=== PATIENT | female | born 1995 | race Caucasian/White ===

== ENCOUNTER 2017-10-14 13:45 | Day surgery (SDC) | payer BC ==
[~2017-10-14] VITALS: Ht 170.2 cm; Wt 65.8 kg
--- NOTE | 2017-10-14 13:33 | Diagnostic Imaging Report ---
PROCEDURE: CT abdomen and pelvis with contrast. TECHNIQUE: Multiple contiguous axial images were obtained through the abdomen and pelvis after administration of intravenous contrast. INDICATION: Right lower quadrant pain. COMPARISON: None available. FINDINGS: Lower chest: The lung bases are clear. No pericardial or pleural effusion. Peritoneum: No free intraperitoneal air or fluid. Liver and biliary system: The liver is normal. The gallbladder is normal. No biliary duct dilation. Spleen and Pancreas: Spleen is normal. The pancreas enhances normally without mass lesion or peripancreatic inflammatory changes. Adrenals: Normal. tract: The kidneys enhance normally without suspicious mass or obstruction. Urinary bladder is distended without wall thickening. Uterus and ovaries are physiologic in appearance for patient's age. GI tract: Stomach is decompressed. No bowel obstruction. No pericolonic inflammatory changes. The appendix is dilated measuring up to 8 mm and has small amount of surrounding inflammation. No rupture or abscess formation. Vasculature and Lymph nodes: Normal caliber aorta. No abdominal or pelvic lymphadenopathy. Musculoskeletal: No concerning osseous lesion. IMPRESSION: 1. Acute appendicitis without rupture, bowel obstruction, or abscess. Dictated by: Dictated on workstation # [id number]
[~2017-10-14 13:45] MED LIST: CATHETER FLUSH 10 ML SYR IV PRN; IOHEXOL 350 MG/ML 100 ML (OMNIPAQUE 350) VIAL IV ONE; NS 100 ML (IVPB) BAG IV ONE
[2017-10-14 14:00] VITALS: BP 125/81
--- NOTE | 2017-10-14 15:06 | History & Physical-Surgical ---
History of Present Illness History of Present Illness Reason for visit/HPI CC: Right lower quadrant abdominal pain. Patient is a 22 year old female who began having rlq abdominal pain last night. Pain moderate dull ache no radiation of pain. Slight fever. No nausea or vomiting. Movement and laughing makes pain worse. Nothing really making it better. Ct scan I reviewed and consistent with acute appendicitis. Date of Admission T Date Seen by Provider: Oct 14, 2017 Time Seen by Provider: 15:05 I consulted on this patient on 10/14/17 15:00 Attending Physician Keyona Dickerson DO Admitting Physician No,Local Physician Consult Allergies and Home Medications Allergies Coded Allergies: No Allergy Information Available (Unverified , 10/14/17) Patient Home Medication List Home Medication List Reviewed: Yes Past [place]-Mkjqji-Tbzxdk Hx Patient Social History Alcohol Use: Rarely Uses Recreational Drug Use: No Smoking Status: Never a Smoker Recent Foreign Travel: No Contact w/Someone Who Travel: No Recent Infectious Disease Expo: No Recent Hopitalizations: No Seasonal Allergies Seasonal Allergies: No Surgeries History of Surgeries: Yes (wisdom teeth) Respiratory History of Respiratory Disorde: No Cardiovascular History of Cardiac Disorders: No Neurological History of Neurological Disord: No Reproductive System : No Hx Reproductive Disorders: No Genitourinary History of Genitourinary Disor: No Gastrointestinal History of Gastrointestinal Di: No Musculoskeletal History of Musculoskeletal Dis: No Endocrine History of Endocrine Disorders: No HEENT History of HEENT Disorders: No Cancer History of Cancer: No Psychosocial History of Psychiatric Problem: No Integumentary History of Skin or Integumenta: No Blood Transfusions History of Blood Disorders: No Adverse Reaction to a Blood Tr: No Family Medical History Significant Family History: No Pertinent Family Hx Constitutional: see HPI EENTM: no symptoms reported Respiratory: no symptoms reported Cardiovascular: no symptoms reported Gastrointestinal: see HPI, abdominal pain (RLQ) Genitourinary: no symptoms reported : No Control/STD Prophylaxis: BC Pills Musculoskeletal: no symptoms reported Skin: no symptoms reported Psychiatric/Neurological: No Symptoms Reported Physical Exam Vital Signs Vital Signs - First Documented 10/14/17 14:00 Temp 99.3 Pulse 88 Resp 16 B/P (MAP) 125/81 (96) Pulse Ox 100 O2 Delivery Room Air Capillary Refill : General Appearance: No Apparent Distress HEENT: PERRL/EOMI, Normal ENT Inspection Neck: Non Tender, Supple Respiratory: No Accessory Muscle Use, No Respiratory Distress Cardiovascular: Regular Rate, Rhythm Gastrointestinal: Soft, Tenderness (right lower quadrant) Rectal: Deferred Back: Normal Inspection Extremity: Normal Inspection, Normal Range of Motion Neurologic/Psychiatric: Alert, Oriented x3, No Motor/Sensory Deficits, Normal Mood/Affect, 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 npo iv hydration Zosyn 4.5 grams IV now To or KEYONA DICKERSON DO Oct 14, 2017 15:05
[2017-10-14] MEDS ORDERED: PIPERACILLIN SODIUM/TAZOBACTAM 4.5 GM in NS (IVPB) 100 ML IV SCH (15:15)
[2017-10-14] MEDS ORDERED: PIPERACILLIN SODIUM/TAZOBACTAM 4.5 GM in NS (IVPB) 100 ML IV ONE (15:30)
[2017-10-14] MEDS ORDERED: MIDAZOLAM 2 MG/2 ML (VERSED) VIAL ONE (16:04)
[2017-10-14] MEDS ORDERED: LACTATED RINGERS 1,000 ML IV ONE ×2 (16:04→18:15)
[2017-10-14] MEDS ORDERED: ROCURONIUM 10 MG/ML 5 ML SYRINGE IV ONE (16:04)
[2017-10-14] MEDS ORDERED: proPOfol 200 MG/20 ML (DIPRIVAN) VIAL IV ONE (16:04)
[2017-10-14] MEDS ORDERED: ONDANSETRON 4 MG/2 ML (SDV) Z0FRAN ONE (16:04)
[2017-10-14] MEDS ORDERED: LIDOCAINE PF 2% 5 ML (XYLOCAINE) VIAL ONE (16:04)
[2017-10-14] MEDS ORDERED: DEXAMETHASONE 10 MG/ML (DECADRON) 1 ML VIAL ONE (16:04)
[2017-10-14] MEDS ORDERED: SEVOFLURANE (ULTANE) 15 ML INHAL SOLN ONE (16:04)
[2017-10-14] MEDS ORDERED: fentaNYL INJECTION 100 MCG/2 ML AMP ONE (16:05)
[2017-10-14] MEDS ORDERED: LIDOCAINE 1% INJ 20 ML 20 ML VIAL ONE (17:16)
[2017-10-14] MEDS ORDERED: BUPIVACAINE 0.5% 30 ML (SENSORCAINE) VIAL ONE (17:16)
[2017-10-14] MEDS ORDERED: ONDANSETRON 4 MG/2 ML (SDV) Z0FRAN IVP PRN (17:30)
[2017-10-14] MEDS ORDERED: fentaNYL INJECTION 100 MCG/2 ML AMP IVP PRN (17:30)
[2017-10-14] MEDS ORDERED: MEPERIDINE (DEMEROL) INJ 50 MG/ML IVP PRN (17:30)
[2017-10-14] MEDS ORDERED: ceFAZolin 1,000 MG (ANCEF) VIAL ONE (18:26)
[2017-10-14] MEDS ORDERED: GLYCOPYRROLATE 0.2 MG/ML (ROBINUL) 2 ML VIAL ONE (18:42)
[2017-10-14] MEDS ORDERED: NEOSTIGMINE 1 MG/ML 5 ML SYRINGE ONE (18:42)
[2017-10-14] MEDS ORDERED: ceFAZolin 1,000 MG (ANCEF) VIAL IV ONE (18:45)
[2017-10-14] MEDS ORDERED: LACTATED RINGERS 1,000 ML IV PRN (19:05)
--- NOTE | 2017-10-14 19:06 | Progress Note-Post Operative ---
Post-Operative Progess Note Surgeon (s)/Tablet Technician (s) Surgeon KEYONA SALGUERO DO Tablet Technician: na Pre-Operative Diagnosis RIGHT LOWER QUADRANT ABDOMINAL PAIN, appendicitis Post-Operative Diagnosis same Procedure & Operative Findings Date of Procedure 10/14/17 Procedure Performed/Findings laparoscopic appendectomy Anesthesia Type gen Estimated Blood Loss Estimated blood loss (mL): minimal Specimens/Packing Specimens Removed appendix KEYONA SALGUERO DO Oct 14, 2017 19:06
[2017-10-14] MEDS ORDERED: DOCU-143 PO (19:07)
[2017-10-14] MEDS ORDERED: ACHD5005 PO (19:07)
--- NOTE | 2017-10-14 19:08 | Discharge Inst-Simple/Standard ---
Discharge Inst-Standard Discharge Medications New, Converted or Re-Newed RX: RX on Chart Patient Instructions/Follow Up Plan of Care/Instructions/FU: 2 weeks Dickerson Activity as Tolerated: No Discharge Diet: Regular Diet Other Inst to Patient Follow up Appt: Make appointment for 2 weeks. Instructions: No lifting greater than 10 pounds. No strenuous activity. May shower in 24 hours, no tub bath or soaking. Use incentive spirometer at home as directed. No Smoking Skin/Wound Care: You have special glue over incisions it will fall off on its own. Symptoms to Report: Appetite Changes, Extremity Discoloration, Numbness/Tingling, Swelling Increased , Bleeding Excessive, Eyesight Changes, Pain Increased, Urine Color Change, Constipation(Persistent), Fever over 101 degree F, Pain/Pressure in chest, Urinating Difficulty, Cough Up/Vomit Blood, Heart Beat Irreg/Pounding, Pain/ Pressure in jaw, Vaginal Bleeding Increase, Cramps in feet or legs, Lightheadedness, Pain/Pressure in shoulder, Diarrhea(Persistent), Memory Changes Suddenly, Questions/Concerns, Weight gain consecutive days, Dizziness/ Fainting, Nausea/Vomiting, Shortness of Breath, Weight gain over 2 pounds If questions or concerns contact your physician Or seek help at emergency department. KEYONA DICKERSON DO Oct 14, 2017 19:08
[2017-10-14] MEDS ORDERED: HYDROcodone/APAP 5 MG/325 MG (LORTAB) TAB PO PRN (19:15)
--- NOTE | 2017-10-14 19:27 | Anesthesia-General Post-Op ---
General Patient Condition Mental Status/LOC: Same as Preop Cardiovascular: Satisfactory Nausea/Vomiting: Absent Respiratory: Satisfactory Pain: Controlled Complications: Absent Post Op Complications Complications None Follow Up Care/Instructions Patient Instructions None needed. Anesthesia/Patient Condition Patient Condition Patient is doing well, no complaints, stable vital signs, no apparent adverse anesthesia problems. No complications reported per nursing. D/C home per [facility] [place] Criteria: No JULIÁN HARRIS CRNA Oct 14, 2017 19:26
[2017-10-14] MEDS: morphine INJ 10 MG/ML 1ML (SYR OR VIAL) IVP PRN ×2 (19:35→19:42)
[2017-10-14 20:51] VITALS: BP 125/86
[2017-10-14] MEDS ORDERED: HYDROcodone/APAP 5 MG/325 MG (LORTAB) TAB ONE (20:56)
--- NOTE | 2017-10-14 22:34 | OPERATIVE REPORT ---
DATE OF SERVICE: 10/14/2017 PREOPERATIVE DIAGNOSIS: Acute appendicitis. POSTOPERATIVE DIAGNOSIS: Acute appendicitis. PROCEDURE: Laparoscopic appendectomy. SURGEON: Keyona Dickerson DO ANESTHESIA: General. ESTIMATED BLOOD LOSS: Minimal. COMPLICATIONS: None. INDICATIONS: The patient is a 22-year-old female who began having abdominal pain last night. Her physical exam is consistent with acute appendicitis and she had a CT scan performed demonstrating acute appendicitis. The patient was explained risks and benefits of procedure and wished to proceed with procedure. Consent was signed in the chart. DESCRIPTION OF PROCEDURE: The patient was taken to the operating suite. She was prepped and draped in sterile fashion. Surgical pause was performed. A 5 mm incision was made just above the umbilicus. Kochers used to dissect down the fascia, grasped and elevated. A Veress needle was inserted in the abdomen and pneumoperitoneum was achieved. Under direct visualization of the laparoscope, a 5 mm trocar was placed in the suprapubic region and a 12 mm trocar was placed in left lower quadrant. Appendix was then located. It was dilated and slightly inflamed. It was grasped, elevated and a [place] was used to dissect around the base of the appendix. An Endo-SKYE 2.5 stapler load was then fired across the base of the appendix. Endo-SKYE 2.0 reloads were then fired across the mesoappendix and the appendix was removed and placed in an Endobag. The appendix was then removed from the abdomen. The abdomen was then irrigated and suctioned. Hemostasis was achieved. The right and left ovaries have normal appearance. The uterus had normal appearance. No other pathology noted. At this time, a 12 mm fascial defect from the trocar was then closed after the trocar was removed, with an Endo Close and 0 Vicryl. Once this was performed, the abdomen was then desufflated. All trocars were removed. A total of 20 mL of 0.5% Marcaine and 1% lidocaine 50:50 ratio was used to anesthetize trocar sites. Skin was then closed using 4-0 Vicryl in a subcuticular fashion. The abdomen was then washed and dried and Skin Affix was then used to place over the incisions. The patient tolerated procedure well without any complications. She was taken to recovery room in stable condition. Job ID: [id number] DocumentID: [id number] Dictated Date: 10/14/2017 20:05:46 Boarder Machine Date: 10/14/2017 22:34:04 Dictated By: KEYONA DICKERSON DO
--- NOTE | 2017-10-15 16:36 | Progress Note ---
Subjective Date Seen by Provider: Oct 15, 2017 Time Seen by Provider: 08:00 Subjective/Events-last exam Doing well. pain controlled. tolerating diet. denies n/v fever sweats chills shortness of breath or chest pain. wanting to go home. Objective Exam Vital Signs Date Time Temp Pulse Resp B/P (MAP) Pulse Ox O2 Delivery O2 Flow Rate FiO2 10/14/17 22:39 Room Air 10/14/17 20:51 97.0 75 14 125/86 (99) 100 Room Air I & O 10/15/17 07:00 Intake Total 2000 ml Output Total 100 ml Balance 1900 ml Capillary Refill : General Appearance: No Apparent Distress HEENT: PERRL/EOMI, Normal ENT Inspection Neck: Non Tender, Supple Respiratory: No Accessory Muscle Use, No Respiratory Distress Cardiovascular: Regular Rate, Rhythm Gastrointestinal: tenderness (incisional, c/d/i) Extremity: Normal Inspection, Normal Range of Motion Neurologic/Psychiatric: Alert, Oriented x3, No Motor/Sensory Deficits, Normal Mood/Affect, 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
== END 2017-10-14 23:30 | disposition home or self-care (01) ==
LOC: SDC 13:45 → 4TH 20:56 → SDC 23:30
PROVIDERS: ATTEND Surgery
DX: K35.80 Unspecified acute appendicitis (principal)
CPT/HCPCS: 74177; 87081; 88304; 94664